=== PATIENT | female | born 1965 | race Caucasian/White ===

== ENCOUNTER 2016-09-20 10:31 | Outpatient (CLI) | payer OTHER ==
[2016-09-20] MEDS ORDERED: IOPAMIDOL-300 100 ML VIAL IVP ONE (11:28)
== END 2016-09-20 10:32 | disposition home or self-care (01) ==
DX: R91.1 Solitary pulmonary nodule (principal)
CPT/HCPCS: 71260; Q9967

== ENCOUNTER 2016-09-20 10:33 | Outpatient (CLI) | payer OTHER | END 2016-09-20 10:34 | disposition home or self-care (01) | DX: Z12.31 Encounter for screening mammogram for malignant neoplasm of breast (principal) ==

== ENCOUNTER 2017-07-25 14:35 | Outpatient (CLI) | payer OTHER ==
--- NOTE | 2017-07-25 19:18 | Ultrasound Report ---
RIGHT UPPER QUADRANT ULTRASOUND: 07/25/2017 CLINICAL INDICATION: Abdominal pain. TECHNIQUE: Real-time scanning was performed with shared services representative static images obtained. The liver measures 17 cm. Hepatic echogenicity is increased, compatible with fatty infiltration. No focal parenchymal lesion or intrahepatic biliary dilatation is present. The common bile duct measur es 4 mm. The gallbladder is surgically absent. The right kidney measures 11.4 cm, and demonstrates no hydronephrosis. No free fluid is present. IMPRESSION: FATTY INFILTRATION OF THE LIVER. NO EVIDENCE OF BILIARY OBSTRUCTION. JOB #: [id number] EXT JOB #:
== END 2017-07-25 14:36 | disposition home or self-care (01) ==
LOC: DI 14:35
PROVIDERS: ATTEND Physician Assistant Medical
DX: K76.0 Fatty (change of) liver, not elsewhere classified (principal)
CPT/HCPCS: 76705

== ENCOUNTER 2017-09-13 18:19 | Outpatient (CLI) | payer OTHER ==
[2017-09-13] MEDS ORDERED: IOPAMIDOL-300 100 ML VIAL ONE (18:30)
[2017-09-13 19:07] LABS: CREATININE 0.7 mg/dL (0.4-1.0)
[2017-09-13] MEDS ORDERED: IOPAMIDOL-300 100 ML VIAL IVP ONE (19:41)
--- NOTE | 2017-09-14 09:31 | CT Report ---
DATE OF SERVICE: 09/13/2017 CT CHEST WITH CONTRAST: 09/13/2017 CLINICAL INDICATION: Pulmonary nodule. COMPARISON: 09/20/2016 TECHNIQUE: Axial CT images of the chest were obtained with 80 mL Isovue 300 intravenously. In accordance with CT protocol optimization, one or more of the following dose reduction techniques were utilized for this exam: Automated exposure control, adjustment of mA and/or KV based on patient size, or use of iterative reconstructive technique. FINDINGS: The heart and great vessels are unremarkable. No hilar or mediastinal lymphadenopathy is present. The previously noted nodule in the posterior right upper lobe is stable, now measuring 8 x 4 mm (previously 9 x 4 mm). No new pulmonary nodule or mass lesion is identified. No effusion or pneumothorax is seen. Osseous structures demonstrate degenerative changes. Limited evaluation of upper abdominal structures demonstrates normal adrenal glands. IMPRESSION: Stable right upper lobe nodule. Followup scan in 12 months, to document 2-year stability, is recommended per Fleischner Society guidelines. TD: 09/14/2017 10:30
== END 2017-09-13 18:20 | disposition home or self-care (01) ==
LOC: DI 18:19
PROVIDERS: ATTEND Physician Assistant Medical
DX: R91.1 Solitary pulmonary nodule (principal); Z79.899 Other long term (current) drug therapy
CPT/HCPCS: 36415; 71260; 82565; Q9967

== ENCOUNTER 2017-09-29 09:29 | Outpatient (CLI) | payer OTHER ==
[2017-09-29 17:48] LABS: EOSINOPHILS # (AUTO) 0.2 10^3/uL (0.0-0.7); HGB - HEMOGLOBIN 13.9 g/dL (12.0-16.0); LYMPHOCYTES # (AUTO) 1.1 10^3/uL (1.5-3.5); LYMPHOCYTES % (AUTO) 25.3 %; MEAN CORPUSCULAR HGB CONC 32.7 g/dL (32.0-36.0); MEAN CORPUSCULAR VOLUME 94.8 fL (81.0-99.0); MEAN PLATELET VOLUME 8.7 fL (7.9-10.8); MONOCYTES # (AUTO) 0.3 10^3/uL (0.0-1.0); MONOCYTES % (AUTO) 6.3 %; NEUTROPHILS # (AUTO) 2.9 10^3/uL (1.5-6.6); NEUTROPHILS % (AUTO) 63.4 %; PLT - PLATELET COUNT 261 10^3/uL (130-450); RED BLOOD COUNT 4.47 10^6/uL (4.20-5.40); RED CELL DISTRIBUTION WIDTH 14.1 % (12.0-15.0); WHITE BLOOD COUNT 4.5 x10^3/uL (4.8-10.8)
[2017-09-29 18:21] LABS: ALBUMIN 4.3 g/dL (3.2-5.5); ALBUMIN/GLOBULIN RATIO 1.6 (1.0-2.2); ALKALINE PHOSPHATASE 78 IU/L (42-121); ALT ALANINE AMINOTRANSFERASE 17 IU/L (10-60); AST ASPARTATE AMINOTRANSFERASE 20 IU/L (10-42); BILIRUBIN,TOTAL 0.5 mg/dL (0.2-1.0); BUN - BLOOD UREA NITROGEN 18 mg/dL (6-20); CALCIUM 8.9 mg/dL (8.5-10.3); CARBON DIOXIDE - CO2 22 mmol/L (21-32); CHLORIDE 112 mmol/L (101-111); CHOL/HDL RATIO 3.1 (<4.4); CHOLESTEROL 166 mg/dL; CREATININE 0.6 mg/dL (0.4-1.0); GFR - MDRD 104 (>89); GLUCOSE 113 mg/dL (70-100); HDL CHOLESTEROL 53 mg/dL; LDL CHOLESTEROL,CALCULATED 91 mg/dL; LDL/HDL RATIO 1.7 (<4.4); SODIUM 139 mmol/L (135-145); VLDL CHOLESTEROL 22 mg/dL
[2017-09-30 14:36] LABS: HEPATITIS C ANTIBODY NON-REACTIVE (NON-REACTIVE)
== END 2017-09-29 09:30 | disposition home or self-care (01) ==
LOC: LAB.F 09:29
PROVIDERS: ATTEND Physician Assistant Medical
DX: Z00.00 Encounter for general adult medical examination without abnormal findings (principal); Z79.899 Other long term (current) drug therapy; F41.9 Anxiety disorder, unspecified; I10 Essential (primary) hypertension; Z11.59 Encounter for screening for other viral diseases; Z72.89 Other problems related to lifestyle
CPT/HCPCS: 36415; 80053; 80061; 83721; 84443; 85025; 86803

== ENCOUNTER 2018-02-03 15:34 | Emergency (ER) | payer BC, OTHER ==
--- NOTE | 2018-02-03 17:10 | XRAY Report ---
EXAM: RIGHT KNEE RADIOGRAPHY EXAM DATE: 02/03/2018 04:55 PM. CLINICAL HISTORY: Fall, right knee pain. COMPARISON: None. TECHNIQUE: 4 views. FINDINGS: Bones: Normal. No fractures or bone lesions. Joints: Normal. No effusion. No subluxations. Soft Tissues: Normal. No soft tissue swelling. IMPRESSION: Normal knee radiography. [facility] Referring Provider Line: [phone] SITE ID: [id number]
--- NOTE | 2018-02-03 17:10 | XRAY Preliminary Report ---
Exam: XR KNEE 4 VIEW RT IMPRESSION: Normal knee radiography. [facility] SITE ID: [id number]
--- NOTE | 2018-02-03 17:56 | ED Physician Documentation ---
PD HPI LOWER EXT INJURY - Stated complaint Stated Complaint: RT KNEE PAIN - Chief complaint Chief Complaint: Ext Problem - History obtained from History obtained from: Patient - History of Present Illness PD HPI LOW EXT INJURY LOCATION: Right, Knee Type of injury: Fall Where injury occurred: Home Timing - onset: How many weeks ago (1) Timing - duration: Weeks (1) Timing - details: Gradual onset Pain level max: 8 Pain level now: 6 Improved by: Rest Worsened by: Moving, Palpating Associated symptoms: No: Weakness, Numbness, Tingling, Swelling Contributing factors: No: Prior ortho surgery, Prosthetic joint Recently seen: Not recently seen - Additional information Additional information: Patient is a 52-year-old female who presents to the emergency department with right knee pain. States this originally started several months ago she reinjured it approximately a week ago. She has noticed bruising to the inside of the knee since that time. States worse with walking. Has not seen her doctor about this yet. Has an appointment on Monday. She has gone through her pain medications faster than usual and is also requesting a refill of her pain medication until that time. 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 - Present Medications Home Medications: Ambulatory Orders Medication Instructions Recorded Confirmed Cetirizine [ZyrTEC] 10 mg PO DAILY 07/03/15 07/03/15 Duloxetine HCl [Cymbalta] 60 mg PO DAILY 07/03/15 07/03/15 Estradiol 0.05 mg Patch [Climara] 1 patch TOP DAILY 07/03/15 07/03/15 Lansoprazole [Prevacid] 30 mg PO DAILY 07/03/15 07/03/15 Meloxicam 15 mg PO DAILY 07/03/15 07/03/15 Methocarbamol 500 mg PO DAILY 07/03/15 07/03/15 Morphine ER 15 mg PO TID 07/03/15 07/03/15 Topiramate 50 mg PO BID 07/03/15 07/03/15 cloNIDine [Catapres] 0.1 mg PO DAILY 07/03/15 07/03/15 Diclofenac Sodium [Voltaren] 02/03/18 Hydrocodone/Acetaminophen 1 each PO Q6H PRN #12 tablet 02/03/18 [Hydrocodon-Acetaminoph 7.5-325] Hydrocodone/Acetaminophen 02/03/18 [Hydrocodone-Acetamin 7.5-325] Triamcinolone Acetonide [Nasacort] 02/03/18 - Allergies Allergies/Adverse Reactions: Allergies Allergy/AdvReac Type Severity Reaction Status Date / Time No Known Drug Allergies Allergy Verified 02/03/18 15:53 - Social History Does the pt smoke?: No Smoking Status: Never smoker Does the pt drink ETOH?: Yes Does the pt have substance abuse?: No - Immunizations Immunizations are current?: Yes PD ED PE NORMAL - Vitals Vital signs reviewed: Yes - General General: Alert and oriented X 3 - Derm Derm: Warm and dry - Extremities Extremities: Other (R knee - ACL, LCL, MCL, PCL intact. No joint effusion. No tenderness along the joint line. Negative Rekha test.) - Neuro Neuro: Alert and oriented X 3 - Psych Psych: Normal mood, Normal affect Results - Vitals Vitals: Vital Signs - 24 hr 02/03/18 02/03/18 15:49 18:22 Temperature 36.6 C 36.5 C Heart Rate 90 84 Respiratory 20 18 Rate Blood Pressure 143/85 H 142/78 H O2 Saturation 97 97 Oxygen O2 Source Room air - Rads (name of study) Right knee x-ray Radiology: Prelim report reviewed, EMP read contemporaneously, See rad report ( Normal) PD MEDICAL DECISION MAKING - ED course Complexity details: reviewed results, re-evaluated patient, considered differential, d/w patient ED course: Patient is a 52-year-old female who presents to the emergency department with right knee pain. Appears to mostly have issues with lateral stability by history. Placed in a hinged knee brace and will see how she progresses in this over the next few days. May need to add lateral support as she may have sprained her MCL during her last injury. We will also refill a small amount of pain medication until she can see her doctor on Monday. [place] prescription monitoring program was reviewed with no red flags. Patient counseled regarding signs and symptoms for which I believe and urgent re- evaluation would be necessary. Patient with good understanding of and agreement to plan and is comfortable going home at this time This document was made in part using voice recognition software. While efforts are made to proofread this document, sound alike and grammatical errors may occur. - Sepsis Event Vital Signs: Vital Signs - 24 hr 02/03/18 02/03/18 15:49 18:22 Temperature 36.6 C 36.5 C Heart Rate 90 84 Respiratory 20 18 Rate Blood Pressure 143/85 H 142/78 H O2 Saturation 97 97 Oxygen O2 Source Room air Departure - Departure Disposition: 01 Home, Self Care Clinical Impression: Right knee sprain Qualifiers: Encounter type: initial encounter Involved ligament of knee: medial collateral ligament Qualified Code(s): S83.411A - Sprain of medial collateral ligament of right knee, initial encounter Condition: Good Instructions: ED Sprain Knee Follow-Up: Zo Herbert PA-C [Primary Care Provider] - Within 3 Days Prescriptions: Hydrocodone/Acetaminophen [Hydrocodon-Acetaminoph 7.5-325] 1 each PO Q6H PRN # 12 tablet PRN Reason: knee pain Comments: Return if you worsen. Wear the brace for comfort and to help your knee heal. Have your knee reexamined by your doctor in approximately 1 week. Follow-up with your doctor on Monday for refill of your pain medications. Do not drink alcohol or drive while on narcotic pain medicine. Note that many narcotic pain relievers also contain tylenol/acetaminophen. Please ensure that your total dose of acetaminophen from all sources does not exceed 3 grams (3000mg) per day. You may constipated on this medication, take a stool softener such as "Colace" twice a day while you are on it. Also recommend a qwxv-nev-qnveuvo laxative such as senna or MiraLAX any day that you do not have a bowel movement. If you received narcotic pain medication in the emergency department, do not drive or operate machinery for the next 24 hours. Discharge Date/Time: 02/03/18 18:22
[2018-02-03 18:23] VITALS: BP 142/78
== END 2018-02-03 18:22 | disposition home or self-care (01) ==
LOC: ED 15:34
DX: S83.411A Sprain of medial collateral ligament of right knee, initial encounter (principal); W01.0XXA Fall on same level from slipping, tripping and stumbling without subsequent striking against object, initial encounter; Y92.009 Unspecified place in unspecified non-institutional (private) residence as the place of occurrence of the external cause; I10 Essential (primary) hypertension; K21.9 Gastro-esophageal reflux disease without esophagitis
CPT/HCPCS: 99283

== ENCOUNTER 2018-03-28 10:45 | Outpatient (CLI) | payer BC | END 2018-03-28 10:46 | LOC: LAB.R 10:45 | PROVIDERS: ATTEND Physician Assistant Medical | DX: N30.00 Acute cystitis without hematuria (principal) | CPT/HCPCS: 87086 ==

== ENCOUNTER 2018-06-15 13:12 | Outpatient (CLI) | payer BC ==
--- NOTE | 2018-06-16 17:04 | MRI Report ---
Reason: KNEE PAIN,RIGHT Procedure Date: 06/15/2018 Accession Number: [id number] / [id number] Procedure: MRI - Knee RT W/O CPT Code: FULL RESULT: EXAM: RIGHT KNEE MRI WITHOUT CONTRAST EXAM DATE: 06/15/2018 02:19 PM. CLINICAL HISTORY: KNEE PAIN, RIGHT. COMPARISON: None. TECHNIQUE: Multiplanar, multisequence T1-weighted and fluid-sensitive sequences of the knee without contrast. Other: None. FINDINGS: Bones: Subjacent marrow edema on both sides of the medial compartment. No fractures. 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 Lateral compartment is relatively spared. Patellofemoral joint also unremarkable. Medial Meniscus: Mid body medial meniscus shows truncation and either previous partial meniscectomy or radially oriented tear. No displaced fragment. Lateral Meniscus: The lateral meniscus is intact. Cruciate Ligaments: The anterior and posterior cruciate ligaments are intact. Collateral Ligaments: The medial collateral and lateral collateral ligamentous structures are intact. Tendons: The quadriceps, patellar, semimembranosus, and popliteus tendons are unremarkable. Musculature: No edema or fatty atrophy. Other: Small joint effusion. No popliteal cyst. No loose bodies. The medial and lateral retinacula are intact. The subcutaneous tissues and fat pads are unremarkable. IMPRESSION: 1. Subjacent marrow edema on both sides of the medial compartment. No fractures. 2. 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 Lateral compartment and patellofemoral joint are spared. 2. Mid body medial meniscus shows truncation is either secondary to partial meniscectomy or radially oriented tear. No displaced fragment. 4. Lateral meniscus, cruciates and collaterals appear unremarkable. [facility] MUSCULOSKELETAL RADIOLOGY SECTION
== END 2018-06-15 13:13 | disposition home or self-care (01) ==
LOC: DI 13:12
PROVIDERS: ATTEND Physician Assistant Medical
DX: M25.561 Pain in right knee (principal); M25.461 Effusion, right knee; M94.261 Chondromalacia, right knee

== ENCOUNTER 2019-11-09 00:32 | Outpatient (CLI) | payer OTHER | END 2019-11-09 00:33 | disposition critical access hospital (66) | LOC: EMS 00:32 | PROVIDERS: ATTEND Surgery | DX: R07.89 Other chest pain (principal) | CPT/HCPCS: A0425; A0427 ==

== ENCOUNTER 2019-11-09 01:10 | Emergency (ER) | payer BC, OTHER ==
--- NOTE | 2019-11-09 01:17 | ED Physician Documentation ---
History of Present Illness - Stated complaint Stated Complaint: CHEST HEAVINESS - Chief complaint Chief Complaint: Cardiac - History obtained from History obtained from: Patient (Patient is a 54-year-old female presents with a chief complaint of chest pressure tonightShe does report some discomfort in her left arm she denies syncope she denies any history of pulmonary embolism or DVT is described as mild and she denies any history of PR or stroke she reports that she has had a stress test several years ago and that she also had a diagnosis of what sounds like pericarditis at one point and she had an echocardiogram that she said showed some left ventricular hypertrophy she denies tobacco use she does receive treatment for hypertension. She denies any illicit drug use.) Review of Systems Constitutional: reports: Reviewed and negative Eyes: reports: Reviewed and negative Ears: reports: Reviewed and negative Nose: reports: Reviewed and negative Throat: reports: Reviewed and negative Cardiac: reports: Chest pain / pressure Respiratory: reports: Reviewed and negative GI: reports: Reviewed and negative : reports: Reviewed and negative Skin: reports: Reviewed and negative Musculoskeletal: reports: Reviewed and negative Neurologic: reports: Reviewed and negative Psychiatric: reports: Reviewed and negative Endocrine: reports: Reviewed and negative Immunocompromised: reports: Reviewed and negative PD PAST MEDICAL HISTORY - Past Medical History Cardiovascular: Hypertension GI: GERD, Cholelithiasis Musculoskeletal: Chronic back pain - Past Surgical History 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, 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 - Present Medications Home Medications: Ambulatory Orders Medication Instructions Recorded Confirmed Cetirizine [ZyrTEC] 10 mg PO DAILY 07/03/15 11/09/19 Duloxetine HCl [Cymbalta] 60 mg PO DAILY 07/03/15 11/09/19 Meloxicam 15 mg PO DAILY 07/03/15 11/09/19 Morphine ER 15 mg PO BID 07/03/15 11/09/19 Topiramate 50 mg PO BID 07/03/15 11/09/19 cloNIDine [Catapres] 0.1 mg PO DAILY 07/03/15 11/09/19 methocarbamoL [Methocarbamol] 500 mg PO DAILY 07/03/15 11/09/19 Diclofenac Sodium [Voltaren] 100 gm TOP DAILY PRN 02/03/18 11/09/19 Hydrocodone/Acetaminophen 1 tab PO QID 02/03/18 11/09/19 [Hydrocodone-Acetamin 7.5-325] Triamcinolone Acetonide [Nasacort] 1 spray NS DAILY 02/03/18 11/09/19 Cannabidiol (Cbd) Extract 0.25 ml PO DAILY 11/09/19 11/09/19 [Epidiolex] Cephalexin [Keflex] 500 mg PO BID 7 Days #14 capsule 11/09/19 Omeprazole Magnesium [Prilosec] 10 mg PO DAILY 11/09/19 11/09/19 - Allergies Allergies/Adverse Reactions: Allergies Allergy/AdvReac Type Severity Reaction Status Date / Time No Known Drug Allergies Allergy Verified 11/09/19 01:22 - Social History Does the pt smoke?: No Smoking Status: Never smoker Does the pt drink ETOH?: Yes Does the pt have substance abuse?: No - Immunizations Immunizations are current?: Yes - POLST Patient has POLST: No PD ED PE NORMAL - Vitals Vital signs reviewed: Yes - General General: Alert and oriented X 3, No acute distress, Well developed/nourished - HEENT HEENT: Atraumatic, PERRL, EOMI, Ears normal, Moist mucous membranes, Pharynx benign, Dentition benign - Neck Neck: Supple, no meningeal sign, No adenopathy, Thyroid normal, No JVD, No bruit - Cardiac Cardiac: RRR, No murmur, Strong equal pulses - Respiratory Respiratory: No respiratory distress, Clear bilaterally - Abdomen Abdomen: Normal bowel sounds, Soft, Non tender, Non distended, No organomegaly - Back Back: No CVA TTP, No spinal TTP - Derm Derm: Normal color, Warm and dry, No rash - Extremities Extremities: No deformity, No tenderness to palpate, Normal ROM s pain, No edema, No calf tenderness / cord - Neuro Neuro: Alert and oriented X 3, 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, No motor deficit, No sensory deficit, Normal speech - Psych Psych: Normal mood, Normal affect Results - Vitals Vitals: Vital Signs - 24 hr 11/09/19 11/09/19 11/09/19 01:10 01:54 02:40 Temperature 37.1 C Heart Rate 93 92 87 Respiratory 14 17 12 Rate Blood Pressure 146/86 H 127/77 145/91 H O2 Saturation 96 98 100 11/09/19 11/09/19 11/09/19 03:23 03:50 04:38 Temperature 36.5 C Heart Rate 77 72 74 Respiratory 12 14 15 Rate Blood Pressure 120/77 124/82 H 127/79 O2 Saturation 97 98 100 11/09/19 05:15 Temperature 36.7 C Heart Rate 73 Respiratory 12 Rate Blood Pressure 127/79 O2 Saturation 97 Oxygen O2 Source Room air - EKG (time done) No standard instances Rate: Other (2 separate EKGs that are 2 hours apart show No STEMI x2) - Labs Labs: Laboratory Tests 11/09/19 11/09/19 11/09/19 02:10 02:10 02:10 WBC 6.0 RBC 4.27 Hgb 13.9 Hct 40.0 MCV 93.7 MCH 32.6 H MCHC 34.8 RDW 12.4 Plt Count 218 MPV 9.5 Neut # (Auto) 3.8 Lymph # (Auto) 1.6 [place] # (Auto) 0.5 Eos # (Auto) 0.2 Baso # (Auto) 0.1 Absolute Nucleated RBC 0.00 Nucleated RBC % 0.0 PT 13.5 H INR 1.2 APTT 33.5 H Sodium 136 Potassium 3.0 L Chloride 106 Carbon Dioxide 23 Anion Gap 7.0 BUN 13 Creatinine 0.8 Estimated GFR (MDRD) 74 L Glucose 108 H Calcium 8.8 Total Bilirubin 0.3 AST 23 ALT 23 Alkaline Phosphatase 69 Total Creatine Kinase 50 Troponin I High Sens B-Natriuretic Peptide Total Protein 6.7 Albumin 4.0 Globulin 2.7 Albumin/Globulin Ratio 1.5 Lipase 29 Urine Color Urine Clarity Urine pH Ur Specific [place] Urine Protein Urine Glucose (UA) Urine Ketones Urine Occult Blood Urine Nitrite Urine Bilirubin Urine Urobilinogen Ur Leukocyte Esterase Urine RBC Urine WBC Ur Squamous Epith Cells Urine Bacteria Ur Microscopic Review Urine Culture Comments Ethyl Alcohol < 5.0 11/09/19 11/09/19 11/09/19 02:10 02:10 02:10 WBC RBC Hgb Hct MCV MCH MCHC RDW Plt Count MPV Neut # (Auto) Lymph # (Auto) [place] # (Auto) Eos # (Auto) Baso # (Auto) Absolute Nucleated RBC Nucleated RBC % PT INR APTT Sodium Potassium Chloride Carbon Dioxide Anion Gap BUN Creatinine Estimated GFR (MDRD) Glucose Calcium Total Bilirubin AST ALT Alkaline Phosphatase Total Creatine Kinase Troponin I High Sens 10.0 B-Natriuretic Peptide 84 Total Protein Albumin Globulin Albumin/Globulin Ratio Lipase Urine Color YELLOW Urine Clarity SL. CLOUDY Urine pH 5.5 Ur Specific [place] <=1.005 Urine Protein NEGATIVE Urine Glucose (UA) NEGATIVE Urine Ketones NEGATIVE Urine Occult Blood TRACE-INTA Urine Nitrite NEGATIVE Urine Bilirubin NEGATIVE Urine Urobilinogen 0.2 (NORMAL) Ur Leukocyte Esterase LARGE H Urine RBC 0-5 Urine WBC >25 H Ur Squamous Epith Cells RARE Squamous Urine Bacteria Moderate H Ur Microscopic Review INDICATED Urine Culture Comments INDICATED Ethyl Alcohol 11/09/19 03:00 WBC RBC Hgb Hct MCV MCH MCHC RDW Plt Count MPV Neut # (Auto) Lymph # (Auto) [place] # (Auto) Eos # (Auto) Baso # (Auto) Absolute Nucleated RBC Nucleated RBC % PT INR APTT Sodium Potassium Chloride Carbon Dioxide Anion Gap BUN Creatinine Estimated GFR (MDRD) Glucose Calcium Total Bilirubin AST ALT Alkaline Phosphatase Total Creatine Kinase Troponin I High Sens 9.7 B-Natriuretic Peptide Total Protein Albumin Globulin Albumin/Globulin Ratio Lipase Urine Color Urine Clarity Urine pH Ur Specific [place] Urine Protein Urine Glucose (UA) Urine Ketones Urine Occult Blood Urine Nitrite Urine Bilirubin Urine Urobilinogen Ur Leukocyte Esterase Urine RBC Urine WBC Ur Squamous Epith Cells Urine Bacteria Ur Microscopic Review Urine Culture Comments Ethyl Alcohol PD MEDICAL DECISION MAKING - ED course Complexity details: re-evaluated patient, considered differential (ACS, PNA, PE, PERICARDITIS, MYOCARDITIS. 03:50 patient still having chest pain will consult hospitalist for admission. HEART score 4. cannot PERC out patient because of age > 50, however hx and pe are not concerning for PE, will admit to hospitalist for risk stratification, consider Echo & stress.), d/w patient, d/w family, d/w call center consultant (05:11 am. patient was to be admitted by the hospitalist however this hospital is unable to perform stress test until Monday, patient updated by Dr. Garcia and patient would like to be dcd home and f/u with her pcp for outpatient stress test. patient to be dcd home at this time. patient is agreeable to be dcd. please see separate note from hosptialist dr. garcia.), other (I did offer to transfer this patient to another hospital since we did not have the capability of providing a stress test this weekend however the patient would like to be discharged home and follow-up with her primary care provider on Monday I do feel this is reasonable as she is chest pain-free on a subsequent evaluation however I did recommend that she be either be admitted here or transferred to a higher level of care however the patient would like to be discharged home she does have medical decision-making capability capacity and would except any possible adverse events such as sudden or cardiac arrest Accepts all responsibility for any possible adverse outcomes patient will be provided prescription with Keflex for her urinary tract infection.) - Consults Consults: Consulted (name) (dr. garcia), Request call center consultant evaluate patient, Request call center consultant admit patient (03:51) Departure - Departure Disposition: 01 Home, Self Care Clinical Impression: Chest pain Qualifiers: Chest pain type: unspecified Qualified Code(s): R07.9 - Chest pain, unspecified UTI (urinary tract infection) Qualifiers: Urinary tract infection type: site unspecified Hematuria presence: without hematuria Qualified Code(s): N39.0 - Urinary tract infection, site not specified Condition: Stable Instructions: ED Chest Pain Atypical Unkn Cause Follow-Up: CLEM ELIAS MD [Primary Care Provider] - 11/09/19 Prescriptions: Cephalexin [Keflex] 500 mg PO BID 7 Days #14 capsule Discharge Date/Time: 11/09/19 05:19
[2019-11-09] MEDS ORDERED: NITROGLYCERIN SL 0.4 MG TABLET SL PRN (01:37)
[2019-11-09] MEDS ORDERED: ASPIRIN 325 MG TABLET PO STA (01:37)
[2019-11-09] MEDS ORDERED: SODIUM CHLORIDE 0.9% 1,000 ML IV ONE (01:37)
--- NOTE | 2019-11-09 02:19 | XRAY Report ---
Reason: cp Procedure Date: 11/09/2019 Accession Number: [id number] / [id number] Procedure: XR - Chest 2 View X-Ray CPT Code: 36764 Final Report FULL RESULT: EXAM: CHEST RADIOGRAPHY EXAM DATE: 11/09/2019 02:07 AM. CLINICAL HISTORY: Sternal chest pain, shortness of breath, nausea, dizziness since 9 PM. COMPARISON: CHEST 2 VIEW PA/LAT 05/03/2016 4:24 PM. TECHNIQUE: 2 views. FINDINGS: Lungs/Pleura: No significant consolidation, effusion, or definite pneumothorax. Mediastinum: Cardiac silhouette is within normal limits when accounting for lung volumes and technique. Other: Mild to moderate multilevel thoracic degenerative change. IMPRESSION: No acute cardiopulmonary abnormality demonstrated. [facility]
[2019-11-09 02:21] LABS: BASOPHILS # (AUTO) 0.1 10^3/uL (0.0-0.1); BASOPHILS % (AUTO) 0.8 %; EOSINOPHILS # (AUTO) 0.2 10^3/uL (0.0-0.7); EOSINOPHILS % (AUTO) 2.5 %; HGB - HEMOGLOBIN 13.9 g/dL (12.0-16.0); LYMPHOCYTES # (AUTO) 1.6 10^3/uL (1.5-3.5); LYMPHOCYTES % (AUTO) 26.4 %; MEAN CORPUSCULAR HEMOGLOBIN 32.6 pg (27.0-31.0); MEAN CORPUSCULAR HGB CONC 34.8 g/dL (32.0-36.0); MEAN CORPUSCULAR VOLUME 93.7 fL (81.0-99.0); MEAN PLATELET VOLUME 9.5 fL (7.9-10.8); MONOCYTES # (AUTO) 0.5 10^3/uL (0.0-1.0); MONOCYTES % (AUTO) 7.5 %; NEUTROPHILS # (AUTO) 3.8 10^3/uL (1.5-6.6); NEUTROPHILS % (AUTO) 62.5 %; PLT - PLATELET COUNT 218 10^3/uL (130-450); RED BLOOD COUNT 4.27 10^6/uL (4.20-5.40); RED CELL DISTRIBUTION WIDTH 12.4 % (12.0-15.0)
[2019-11-09 02:22] LABS: BILIRUBIN,URINE NEGATIVE (NEGATIVE); GLUCOSE, URINE (UA) NEGATIVE (NEGATIVE); KETONES,URINE (UA) NEGATIVE (NEGATIVE); LEUKOCYTE ESTERASE, URINE LARGE (NEGATIVE); NITRITE,URINE NEGATIVE (NEGATIVE); OCCULT BLOOD,URINE TRACE-INTA (NEGATIVE); PH,URINE 5.5 PH (5.0-7.5); PROTEIN,URINE NEGATIVE (NEGATIVE); UROBILINOGEN,URINE 0.2 (NORMAL) E.U./dL (NORMAL)
[2019-11-09 02:24] LABS: CLARITY,URINE SL. CLOUDY (CLEAR)
[2019-11-09 02:26] LABS: INR 1.2 (0.8-1.2); PT - PROTHROMBIN TIME 13.5 secs (9.9-12.6)
[2019-11-09 02:34] LABS: ALBUMIN/GLOBULIN RATIO 1.5 (1.0-2.2); ALKALINE PHOSPHATASE 69 IU/L (42-121); ALT ALANINE AMINOTRANSFERASE 23 IU/L (10-60); AST ASPARTATE AMINOTRANSFERASE 23 IU/L (10-42); BILIRUBIN,TOTAL 0.3 mg/dL (0.2-1.0); BUN - BLOOD UREA NITROGEN 13 mg/dL (6-20); CALCIUM 8.8 mg/dL (8.5-10.3); CARBON DIOXIDE - CO2 23 mmol/L (21-32); CHLORIDE 106 mmol/L (101-111); CK- CREATINE KINASE 50 IU/L (22-269); CREATININE 0.8 mg/dL (0.4-1.0); GFR - MDRD 74 (>89); GLUCOSE 108 mg/dL (70-100); LIPASE 29 U/L (22-51); SODIUM 136 mmol/L (135-145); TOTAL PROTEIN 6.7 g/dL (6.7-8.2)
[2019-11-09 02:41] LABS: BACTERIA,URINE Moderate /HPF (None Seen); RBC,URINE 0-5 /HPF (0-5); SQUAMOUS EPITHELIAL CELL,UR RARE Squamous (<= Few)
[2019-11-09 02:42] LABS: PARTIAL THROMBOPLASTIN TIME 33.5 secs (24.9-33.3)
[2019-11-09] MEDS ORDERED: cefTRIAXone 1 GM in SODIUM CHLORIDE 0.9% MINIBAG 100 ML IV STA (02:55)
[2019-11-09 04:42] VITALS: BP 127/79
== END 2019-11-09 05:19 | disposition home or self-care (01) ==
LOC: EDUNIT# → ED 01:10
DX: R07.9 Chest pain, unspecified (principal); I10 Essential (primary) hypertension; N39.0 Urinary tract infection, site not specified
CPT/HCPCS: 36415; 71046; 80053; 80320; 81001; 81003; 82550; 83690; 83880; 84484; 85025; 85610; 85730; 87086; 93005; 96361; 96365; 99285